=== PATIENT | male | born 1945 | race African-American/Black ===

== ENCOUNTER → 2017-05-25 | Emergency (ER) | payer SELFPAY ==
[~2017-05-25] VITALS: Ht 175.3 cm; Wt 63.5 kg
[~2017-05-25] MED LIST: Albuterol ud Inhalation HHN ONE; EPINEPHrine 1mg/10ml Syringe IV ONE
[2017-05-25 04:31] VITALS: BP 0/0
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
== END | disposition expired ==
LOC: EDBD 04:21 → EMR 04:36
DX: T59.811A Toxic effect of smoke, accidental (unintentional), initial encounter (principal); X08.8XXA Exposure to other specified smoke, fire and flames, initial encounter; Y92.039 Unspecified place in apartment as the place of occurrence of the external cause; I46.9 Cardiac arrest, cause unspecified
CPT/HCPCS: 31500; 92950; 99291; J0171